=== PATIENT | female | born 1965 | race Caucasian/White ===

== ENCOUNTER 2017-07-16 12:32 | Inpatient (IN) | payer BC, OTHER ==
[~2017-07-16] VITALS: Ht 152.4 cm; Wt 127.9 kg
[2017-07-17] MEDS ORDERED: SYNTHROID125 MCG PO (08:51)
[2017-07-17] MEDS ORDERED: B COMPLEX1 EACH PO (08:52)
[2017-07-17] MEDS ORDERED: PROTONIX40 MG PO (08:52)
[2017-07-17] MEDS ORDERED: IRON325 MG PO (08:52)
[2017-07-17] MEDS ORDERED: POTABA500 MG PO (08:53)
[2017-07-17] MEDS ORDERED: VITAMIN C500 M2 PO (08:53)
== END 2017-07-17 11:37 | disposition left against medical advice (07) | DRG 203 ==
LOC: ER 12:32 → SEC-K 21:26 → MEDI 21:50
PROC: 4A033R1 Measurement of Arterial Saturation, Peripheral, Percutaneous Approach (ICD-10-PCS; principal; 2017-07-16)
PROC: 3E0F7GC Introduction of Other Therapeutic Substance into Respiratory Tract, Via Natural or Artificial Opening (ICD-10-PCS; 2017-07-16)
DX: J45.32 Mild persistent asthma with status asthmaticus (principal); R09.02 Hypoxemia; Z86.711 Personal history of pulmonary embolism; E66.01 Morbid (severe) obesity due to excess calories; J11.1 Influenza due to unidentified influenza virus with other respiratory manifestations